=== PATIENT | male | born 1985 | race Hispanic/Latino ===

== ENCOUNTER 2017-09-12 05:40 | Day surgery (SDC) | payer OTHER ==
[~2017-09-12] VITALS: Ht 167.6 cm; Wt 108.9 kg
--- NOTE | 2017-09-12 09:22 | NUR ---
09/12/17 0922 Minnie Dave 0953-PATIENT ARRIVED TO PACU ON 10L MASK O2 SAT 100% NONAROUSABLE. DRESSING TO LEFT INGUINAL CDI.
[2017-09-12] MEDS ORDERED: IBUPROFEN600 MG PO (09:30)
[2017-09-12] MEDS ORDERED: MAPAP325 MG PO (09:31)
[2017-09-12] MEDS ORDERED: OXYCODON-ACETA1 EAC2 PO (09:31)
--- NOTE | 2017-09-12 11:28 | NUR ---
PT REPORTS THAT HE NAUSEA AND DIZZINESS ARE BETTER. HE REPORTS THAT THE PAIN IS INCREASING. REQUETING SOMETHING FOR THE PAIN. SIGNIFICANT OTHER IS AT THE BEDSIDE. CALL LIGHT IS WITHIN REACH. NO OTHER C/O'S AT THIS TIME. WILL REASSESS WITHIN THE HOUR.
--- NOTE | 2017-09-12 12:16 | NUR ---
ASSIST TO BR AMB SLOWLY BUT STEADY. VOIDS 200MLS DARK ALVINA URINE. SLIGHT DIZZINESS WHEN UP. DENIES NAUSEA. WARM BLANKET ON WATER REFILLED.
--- NOTE | 2017-09-12 12:28 | NUR ---
PT REPORTS THAT HIS PAIN IS BETTER, HE HAS ALREADY URINATED. NO OTHER C/O'S AT THIS TIME. SIGNIFICANT OTHER AT THE BEDSIDE. PT HAS MET DC CRITERIA AND STATES THAT HE FEELS "WONDERFUL" ABOUT GOING HOME AND THAT HE IS READY TO GO.
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
== END 2017-09-12 12:50 | disposition home or self-care (01) ==
LOC: DS 05:40
PROVIDERS: Surgery
PROC: 0YU60JZ Supplement Left Inguinal Region with Synthetic Substitute, Open Approach (ICD-10-PCS; principal; 2017-09-12 06:45)
DX: K40.90 Unilateral inguinal hernia, without obstruction or gangrene, not specified as recurrent (principal); E66.9 Obesity, unspecified; J45.909 Unspecified asthma, uncomplicated; Z68.38 Body mass index [BMI] 38.0-38.9, adult
CPT/HCPCS: 00830; C1781; J0690; J1644; J1885; J2405; J2704; J2710; J3010; J7120